=== PATIENT | female | born 1965 ===

== ENCOUNTER → 2018-01-28 13:56 | Outpatient (REF) | payer OTHER, SELFPAY | LOC: LAB 13:56 | PROVIDERS: Visit Provider Physician Assistant | DX: L57.8 Other skin changes due to chronic exposure to nonionizing radiation (principal); L81.4 Other melanin hyperpigmentation; L98.8 Other specified disorders of the skin and subcutaneous tissue; L29.8 Other pruritus; L81.0 Postinflammatory hyperpigmentation; L30.8 Other specified dermatitis; D22.5 Melanocytic nevi of trunk; D22.61 Melanocytic nevi of right upper limb, including shoulder; L60.3 Nail dystrophy; D48.5 Neoplasm of uncertain behavior of skin | CPT/HCPCS: 87070; 87075; 87077; 87147; 87186; 87205 ==